=== PATIENT | female | born 1950 | race Caucasian/White ===

== ENCOUNTER 2019-04-23 14:16 | Emergency (ER) | payer MEDICARE, OTHER ==
[~2019-04-23] VITALS: Ht 167.6 cm; Wt 105.7 kg
[2019-04-23] MEDS ORDERED: IV NORMAL SALINE 1,000ML 1,000 ML IV SCH (14:42)
[2019-04-23] MEDS ORDERED: IPRATRPIUM/ALBUTEROL 0.5/2.5MG 3 ML NEBU. NEB ONE (14:45)
[2019-04-23 14:57] LABS: BASO % 1 % (0-3); EOS % 0 % (0-3); HEMOGLOBIN 14.1 g/dL (12.0-15.5); LYMPH # 0.9 x10^3/uL (1.0-4.8); LYMPH % 13 % (24-48); MEAN CORPUSCULAR HEMOGLOBIN 28 pg (25-35); MEAN CORPUSCULAR HGB CONC 31 g/dL (31-37); MEAN CORPUSCULAR VOLUME 89 fL (79-100); MONO # 0.6 x10^3/uL (0.0-1.1); MONO % 9 % (0-9); NEUT # 5.3 x10^3uL (1.8-7.7); NEUT % 77 % (31-73); PLATELET COUNT 172 x10^3/uL (140-400); RED BLOOD COUNT 5.04 x10^6/uL (3.50-5.40); RED CELL DISTRIBUTION WIDTH 15.5 % (11.5-14.5); WHITE BLOOD COUNT 6.9 x10^3/uL (4.0-11.0)
--- NOTE | 2019-04-23 15:02 | PHYS DOC ---
Past History Past Medical History: CAD, COPD, Diabetes, Hypertension Additional Past Medical Histor: chronic pain,, obesity Smoking: Cigarettes Adult General Chief Complaint Chief Complaint: SHORTNESS OF BREATH HPI HPI Patient is a 69-year-old female, smoker, who presents to the emergency department from her group home, for "worsening" over the past few days. She reports a cough, productive of sputum, although she is uncertain of the color. She apparently had an x-ray done yesterday, and another x-ray of her chest done today which according to the report, shows "worsening aeration"bibasilar infiltrates compared to yesterday's chest x-ray, although her report from that x-ray is not available. However the patient is not currently on antibiotics. She was on Levaquin in January for pneumonia. The patient reports pain all over, and has a history of chronic pain and takes but is not having morphine, but is not having any focal pain. She denies any chest pain, fevers, or chills. There are no alleviating or exacerbating factors to her symptoms. She wears oxygen at night. Review of Systems Review of Systems Constitutional: Denies fever or chills [] Eyes: Denies change in visual acuity, redness, or eye pain [] HENT: Denies nasal congestion or sore throat [] Respiratory: No additional information not addressed in HPI [] Cardiovascular: No additional information not addressed in HPI [] GI: Denies abdominal pain, nausea, vomiting, bloody stools or diarrhea [] : Denies dysuria or hematuria [] Musculoskeletal: Denies focal pain [] Integument: Denies rash or skin lesions [] Neurologic: Denies headache, focal weakness or sensory changes [] Endocrine: Denies polyuria or polydipsia [] All other systems were reviewed and found to be within normal limits, except as documented in this note. Current Medications Current Medications Current Medications Medications (Trade) Dose Ordered Sig/[facility] Start Time Stop Time Status Last Admin Dose Admin Albuterol/ Ipratropium (Duoneb) 3 ml 1X ONCE 04/23/19 14:45 04/23/19 14:46 UNV Sodium Chloride 1,000 ml @ 100 mls/hr Q10H 04/23/19 14:42 04/24/19 00:41 UNV Physical Exam Physical Exam PHYSICAL EXAM: CONSTITUTIONAL: Well developed, well nourished HEAD: normocephalic, atraumatic EENT: PERRL, EOMI. Conjunctivae normal color, sclerae non-icteric; moist mucous membranes. NECK: Supple, non-tender; no meningismus. LUNGS: Globally diminished breath sounds, with scattered rhonchi. HEART: Regular rate and rhythm, no murmur CHEST: No deformity; non-tender ABDOMEN: The abdomen is soft, and non-tender, no masses or bruits. EXTREM: Normal ROM; no deformity, no calf tenderness. Normal pulses palpable in all extremities. There is trace bilateral pedal edema. SKIN: No rash; no diaphoresis NEURO: Alert; normal speech and cognition; CN's grossly intact; strength grossly intact without focal deficit. BACK: No CVA TTP. Current Patient Data Lab Results Laboratory Tests Test 04/23/19 14:34 04/23/19 14:54 04/23/19 15:00 White Blood Count 6.9 x10^3/uL Red Blood Count 5.04 x10^6/uL Hemoglobin 14.1 g/dL Hematocrit 45.0 % Mean Corpuscular Volume 89 fL Mean Corpuscular Hemoglobin 28 pg Mean Corpuscular Hemoglobin Concent 31 g/dL Red Cell Distribution Width 15.5 % Platelet Count 172 x10^3/uL Neutrophils (%) (Auto) 77 % Lymphocytes (%) (Auto) 13 % Monocytes (%) (Auto) 9 % Eosinophils (%) (Auto) 0 % Basophils (%) (Auto) 1 % Neutrophils # (Auto) 5.3 x10^3uL Lymphocytes # (Auto) 0.9 x10^3/uL Monocytes # (Auto) 0.6 x10^3/uL Eosinophils # (Auto) 0.0 x10^3/uL Basophils # (Auto) 0.0 x10^3/uL Prothrombin Time 9.9 SEC Prothromb Time International Ratio 1.0 Sodium Level 146 mmol/L Potassium Level 3.9 mmol/L Chloride Level 103 mmol/L Carbon Dioxide Level 37 mmol/L Anion Gap 6 Blood Urea Nitrogen 19 mg/dL Creatinine 0.9 mg/dL Estimated GFR (Cockcroft-Gault) 62.1 BUN/Creatinine Ratio 21 Glucose Level 97 mg/dL Lactic Acid Level 1.7 mmol/L Calcium Level 8.4 mg/dL Total Bilirubin 0.3 mg/dL Aspartate Amino Transf (AST/SGOT) 18 U/L Alanine Aminotransferase (ALT/SGPT) 18 U/L Alkaline Phosphatase 48 U/L Troponin I Quantitative 0.020 ng/mL LH-Ayf-T-Type Natriuretic Peptide 3525 pg/mL Total Protein 5.7 g/dL Albumin 2.8 g/dL Albumin/Globulin Ratio 1.0 Urine Collection Type Unknown Urine Color Yellow Urine Clarity Clear Urine pH 6.0 Urine Specific Steen 1.020 Urine Protein Neg Urine Glucose (UA) Neg mg/dL Urine Ketones (Stick) Neg mg/dL Urine Blood Neg Urine Nitrite Neg Urine Bilirubin Neg Urine Urobilinogen Dipstick 0.2 mg/dL Urine Leukocyte Esterase Neg Urine RBC 0 /HPF Urine WBC Occ /HPF Urine Squamous Epithelial Cells Occ /LPF Urine Bacteria 0 /HPF Urine Opiates Screen Pos Urine Methadone Screen Neg Urine Barbiturates Neg Urine Phencyclidine Screen Neg Urine Amphetamine/Methamphetamine Neg Urine Benzodiazepines Screen Neg Urine Cocaine Screen Neg Urine Cannabinoids Screen Neg Urine Ethyl Alcohol Neg Influenza Type A (Rapid) Negative Influenza Type B (Rapid) Negative Blood Gas pH 7.40 Blood Gas PCO2 60 mmHg Blood Gas PO2 59 mmHg Blood Gas HCO3 37 mmol/L Arterial Bld O2 Saturation (Calc) 89 % FiO2 32 % Current Medications Medications (Trade) Dose Ordered Sig/Grace Route PRN Reason Start Time Stop Time Status Last Admin Dose Admin Albuterol/ Ipratropium (Duoneb) 3 ml 1X ONCE NEB 04/23/19 14:45 04/23/19 14:50 DC 04/23/19 15:09 Sodium Chloride 1,000 ml @ 100 mls/hr Q10H IV 04/23/19 14:42 04/24/19 00:41 04/23/19 14:59 EKG EKG []Normal sinus rhythm at a rate of 89 beats for minute, left axis deviation, right bundle-branch block there are no acute ischemic ST/T changes. Radiology/Procedures Radiology/Procedures PROCEDURE: PORTABLE CHEST 1V EXAM: Chest, single view. HISTORY: Cough. Shortness of breath. COMPARISON: None. FINDINGS: A frontal view of the chest obtained. There is mild diffuse increased interstitial opacity. There is no consolidation, pleural effusion or pneumothorax. The heart is normal in size for portable technique. There are dorsal column stimulator leads overlying the thoracic spine. IMPRESSION: Mild diffuse interstitial prominence without andi congestion or consolidated infiltrate. [] Course & Med Decision Making Course & Med Decision Making Pertinent Labs and Imaging studies reviewed. (See chart for details) [] 4:15 PM: Patient is stable at this time. Her oxygenation remains normal. Her blood pressure is noted low, but she is laying on her side, her position of comfort, with a blood pressure cuff on the elevated arm, her blood pressure has been stable throughout her stay. She feels at her baseline at this time. There is no acute pathology noted, her ABG shows a compensated chronic respiratory acidosis. The patient is stable for discharge back to her nursing facility. Although there is no definite pneumonia on the x-ray today, given her smoking history, I will prescribe her an antibiotic to prevent the possibility for superinfection. Return precautions were discussed in detail. Dragon Disclaimer Dragon Disclaimer This electronic medical record was generated, in whole or in part, using a voice recognition dictation system. Departure Departure: Impression: Primary Impression: COPD exacerbation Disposition: HOME, SELF-CARE Condition: STABLE Patient Instructions: Bronchitis, Chronic Obstructive Pulmonary Disease Scripts Azithromycin (ZITHROMAX) 250 Mg Tablet 1 PKG PO UD for -, #6 TAB Prov: LIZ PINEDO MD 04/23/19 LIZ PINEDO MD Apr 23, 2019 15:02
[2019-04-23 15:18] LABS: ALBUMIN 2.8 g/dL (3.4-5.0); CALCIUM 8.4 mg/dL (8.5-10.1); CREATININE 0.9 mg/dL (0.6-1.0); GFR 62.1; POTASSIUM 3.9 mmol/L (3.5-5.1); TOTAL BILIRUBIN 0.3 mg/dL (0.2-1.0); TOTAL PROTEIN 5.7 g/dL (6.4-8.2)
[2019-04-23 15:19] LABS: BARBITURATES NEG (NEG); BENZODIAZEPINES NEG (NEG); CANNABINOIDS NEG (NEG); COCAINE NEG (NEG); METHADONE NEG (NEG); OPIATES POS (NEG); PHENCYCLIDINE NEG (NEG)
[2019-04-23 15:22] LABS: BGAS PH 7.4 (7.35-7.45)
[2019-04-23 15:23] LABS: AMPHETAMINE/METHAMPHETAMINE NEG (NEG)
[2019-04-23 15:24] LABS: BACTERIA,URINE 0 /HPF (0-FEW); BILIRUBIN,URINE NEG (NEG); CLARITY,URINE CLEAR; COLOR,URINE YELLOW; GLUCOSE,URINE NEG (NEG); NITRITE,URINE NEG (NEG); RBC,URINE 0 /HPF (0-2); SQUAMOUS EPITHELIAL CELL,UR OCC /LPF; UROBILINOGEN,URINE 0.2 mg/dL (0.2 mg/dL); WBC,URINE OCC /HPF (0-4)
--- NOTE | 2019-04-23 15:37 | RAD ---
EXAM: Chest, single view. HISTORY: Cough. Shortness of breath. COMPARISON: None. FINDINGS: A frontal view of the chest obtained. There is mild diffuse increased interstitial opacity. There is no consolidation, pleural effusion or pneumothorax. The heart is normal in size for portable technique. There are dorsal column stimulator leads overlying the thoracic spine. IMPRESSION: Mild diffuse interstitial prominence without andi congestion or consolidated infiltrate. Electronically signed by: Ana Strickland MD (04/23/2019 3:34 PM) [place] [id number]
[2019-04-23 15:55] LABS: INFLUENZA A PATIENT NEGATIVE (NEGATIVE); INFLUENZA B PATIENT NEGATIVE (NEGATIVE)
[2019-04-23] MEDS ORDERED: AZIT250T PO (16:20)
[2019-04-23] MEDS ORDERED: MORPHINE SULFATE 4 MG/ML DISP.SYRIN. IV ONE (17:00)
[2019-04-23 17:16] VITALS: BP 111/37
--- NOTE | 2019-04-26 08:11 | EKG ---
[address] [address] Test Date: 2019-04-23 Test Time: 15:32:58 Pat Name: YONIS GREENFIELD Department: Room: Gender: F [employer] Director: : 1950 Requested By: LIZ PINEDO Order Number: [id number] Reading MD: Measurements Intervals [place] Rate: 89 P: -62 GA: 136 QRS: -49 QRSD: 128 T: 14 QT: 380 QTc: 463 Interpretive Statements SINUS RHYTHM ABNORMAL LEFT AXIS DEVIATION NON SPECIFIC INTRAVENTRICULAR BLOCK RVH WITH REPOLARIZATION ABNORMALITY ABNORMAL ECG RI6.01 No previous ECG available for comparison
== END 2019-04-23 20:00 | disposition home or self-care (01) ==
LOC: ER 14:16
DX: J44.1 Chronic obstructive pulmonary disease with (acute) exacerbation (principal); I25.10 Atherosclerotic heart disease of native coronary artery without angina pectoris; I10 Essential (primary) hypertension; F17.210 Nicotine dependence, cigarettes, uncomplicated; G89.29 Other chronic pain; E66.9 Obesity, unspecified; Z68.37 Body mass index [BMI] 37.0-37.9, adult
CPT/HCPCS: 36415; 71045; 80053; 80307; 81001; 82803; 83605; 83880; 84484; 85025; 85610; 87040; 87804; 93005; 94640; 96374; 99285; J2270; J7620; J7030

== ENCOUNTER 2019-11-14 17:41 | Observation (INO) | payer OTHER ==
[~2019-11-14] VITALS: Ht 167.6 cm; Wt 116.5 kg
[~2019-11-14 17:41] MED LIST: AZIT250T PO
--- NOTE | 2019-11-14 17:56 | PHYS DOC ---
Past History Past Medical History: CAD, COPD, Diabetes, Hypertension Additional Past Medical Histor: chronic pain,, obesity (KEELY ROGERS DO) Smoking: Cigarettes Alcohol Use: None Drug Use: None (KEELY ORGERS DO) General Adult EDM: Chief Complaint: WEAKNESS/GENERALIZED HPI: HPI: Patient is a 69-year-old female presenting to the ED with a chief complaint of lethargy and shortness of breath. Patient was brought by EMS from a shelter. Patient is on 1.5 L of oxygen all the time due to COPD. EMS state that when they got to the shelter patient was on 5 L and her oxygen saturation was 79%. They placed her nonrebreather and patient was 100% oxygenation. Patient is currently being treated for cellulitis in her lower extremities with Bactrim. Patient also states that she used her breathing treatment this morning which did not help her. Patient denies fever, chills, nausea, vomiting, diarrhea, chest pain. (KEELY ROGERS DO) Review of Systems: Review of Systems: Constitutional: Denies fever or chills Eyes: Denies change in visual acuity HENT: Denies nasal congestion or sore throat Respiratory: Complains of wheezing and shortness of breath Cardiovascular: Denies chest pain or edema GI: Denies abdominal pain, nausea, vomiting, bloody stools or diarrhea : Denies dysuria Musculoskeletal: Complains of cellulitis in her lower extremities. Neurologic: Denies headache, focal weakness or sensory changes (KEELY ROGERS DO) Heart Score: Risk Factors: Risk Factors: DM, Current or recent (<one month) smoker, HTN, HLP, family history of CAD, obesity. Risk Scores: Score 0 - 3: 2.5% MACE over next 6 weeks - Discharge Home Score 4 - 6: 20.3% MACE over next 6 weeks - Admit for Clinical Observation Score 7 - 10: 72.7% MACE over next 6 weeks - Early Invasive Strategies (KEELY ROGERS DO) Allergies: Allergies: Allergies Coded Allergies Type Severity Reaction Last Updated Verified Nghhbew-Evg-Fnd Reductase Inhibitor Allergy Unknown 04/23/19 Yes alendronate sodium Allergy Unknown 04/23/19 Yes gabapentin Allergy Unknown 04/23/19 Yes ibuprofen Allergy Unknown 04/23/19 Yes propoxyphene Allergy Unknown 04/23/19 Yes (KEELY ROGERS DO) Physical Exam: PE: Constitutional: Well developed, well nourished, no acute distress, non-toxic appearance. [] HENT: Normocephalic, atraumatic Eyes: EOMI Neck: Normal range of motion, Supple Cardiovascular:Heart rate regular rhythm Lungs & Thorax: Bilateral wheezing Abdomen: Bowel sounds normal, soft, no tenderness Extremities: Both lower extremities are wrapped as she has been treated for cellulitis. There is mild erythema in this area. Neurologic: Alert (KEELY ROGERS DO) PE: Constitutional: Well developed, obese, no acute distress, somnolent HENT: Normocephalic, atraumatic Eyes: Conjunctiva normal, no discharge Cardiovascular: Heart rate normal, regular rhythm Lungs & Thorax: No respiratory distress, equal chest rise and fall Abdomen: Obese, soft Skin: Warm, dry, no erythema, no rash Extremities: Kerlex bandages to bilateral lower legs at sites of reported known cellulitis, ROM intact, 2+ edema Neurologic: Alert but somnolent, will fall asleep after talking for brief period of time, no focal deficits noted Psychologic: Affect normal, judgment normal (AZUCENA MIMS DO) EKG: EKG: EKG interpretation: 17: 56 on 11/14/2019 HR: 72 Sinus rhythm Regular intervals Normal axis Nonspecific ST changes [] (KEELY ROGERS DO) Radiology/Procedures: Radiology/Procedures: [] (KEELY ROGERS DO) Radiology/Procedures: PROCEDURE: CHEST AP ONLY Exam: Chest one view INDICATION: Shortness of breath TECHNIQUE: Frontal view of the chest Comparisons: 04/23/2019 FINDINGS: The cardiomediastinal silhouette and pulmonary vessels are within normal limits. Hazy opacity at the left lung base. Remaining lungs are clear. IMPRESSION: Opacity at the left lung base may relate to atelectasis, effusion and/or pneumonia Electronically signed by: Mechelle English MD (11/14/2019 6:33 PM) [id number] (AZUCENA MIMS DO) Course & Med Decision Making: Course & Med Decision Making Ordered labs, chest x-ray, EKG, troponin, BNP, ABG Currently patient is on 5 L nasal cannula and her oxygen saturation is 92%. Patient seems to be dozing off and reviewing her medications I see that she has taken opiates. Ordered Narcan 0.4 mg IV. Patient care turned over to Dr Mims at shift change. (KEELY ROGRES DO) Course & Med Decision Making 1800- Sign out received from Dr. Rogers for patient with generalized weakness, shortness of breath, and report of hypoxia down to 79% on her normal O2 requirement. Patient with increased in Sat with increased supplemental O2. EKG and labs reviewed. WBC slightly elevated. Lactic acid WNL. BNP elevated >2000. Initial troponin WNL. CXR with concern for opacity in LLL concerning for pneumonia. Empiric antibiotics initiated with Zosyn and Azithromycin. COVID testing had also been performed. Patient seen and evaluated by myself. Patient requiring admission for further evaluation and treatment. Discussed with Dr. Molina (hospitalist) who is in agreement with admission. Discussed findings and plan with patient, who acknowledges understanding and agreement. COVID-19 CRITERIA: The patient was evaluated during the global COVID-19 pandemic, and that diagnosis was suspected/considered upon their initial presentation. Their evaluation, treatment and testing was consistent with current guidelines for patients who present with complaints or symptoms that may be related to COVID-19. (AZUCENA MIMS DO) Dragon Disclaimer: Dragon Disclaimer: This electronic medical record was generated, in whole or in part, using a voice recognition dictation system. (KEELY ROGERS DO) Departure Departure: Impression: Primary Impression: Generalized weakness Additional Impressions: Pneumonia Qualified Codes: J18.9 - Pneumonia, unspecified organism Hypoxia Suspected 2019 novel coronavirus infection Disposition: ADMITTED INPATIENT Admitting Physician: Owen Molina (AZUCENA MIMS DO) Condition: GUARDED Referrals: GENESIS FLORES (PCP) Justification of Admission: Justification of Admission: Justification of Admission Dx: Yes Comments: Generalized weakness, Hypoxia, Pneumonia, (AZUCENA MIMS DO) COVID-19 Assessment COVID-19 Patient Risks: Age 65 or older: Yes Sign of co-morbidity: Yes Exp to person + for COVID: No Exp to PUI: No Travel from affected area: No Lower respiratory symptoms: Yes Fever: No (AZUCENA MIMS DO) PPE Use: Full PPE with N95 mask or PAPR: Yes (AZUCENA MIMS DO) Critical Care Time Critical care time was 30 minutes which includes time at bedside, spent in discussion of patient's care with specialists and/or family members, with interpretation of laboratory and/or radiological studies and is exclusive of procedures. (AZUCENA MIMS DO) Critical Care Time Critical care time was [] minutes exclusive of procedures. (KEELY ROGERS DO) KEELY ROGERS DO Nov 14, 2019 17:56 AZUCENA MIMS DO Nov 14, 2019 18:46
[2019-11-14 18:10] LABS: BGAS PH 7.33 (7.35-7.45)
[2019-11-14] MEDS ORDERED: NALOXONE 0.4 MG/ML VIAL. IV ONE (18:15)
[2019-11-14 18:19] LABS: BASO # 0.1 x10^3/uL (0.0-0.2); BASO % 1 % (0-3); EOS % 0 % (0-3); HEMATOCRIT 38.7 % (36.0-47.0); HEMOGLOBIN 11.8 g/dL (12.0-15.5); LYMPH % 9 % (24-48); MEAN CORPUSCULAR HEMOGLOBIN 25 pg (25-35); MEAN CORPUSCULAR HGB CONC 30 g/dL (31-37); MEAN CORPUSCULAR VOLUME 84 fL (79-100); MONO % 9 % (0-9); NEUT # 9.3 x10^3uL (1.8-7.7); NEUT % 81 % (31-73); PLATELET COUNT 246 x10^3/uL (140-400); RED BLOOD COUNT 4.64 x10^6/uL (3.50-5.40); RED CELL DISTRIBUTION WIDTH 17.2 % (11.5-14.5); WHITE BLOOD COUNT 11.4 x10^3/uL (4.0-11.0)
[2019-11-14 18:25] LABS: CALCIUM 8.4 mg/dL (8.5-10.1); CREATININE 1.9 mg/dL (0.6-1.0); GFR 26.2; POTASSIUM 5.2 mmol/L (3.5-5.1)
--- NOTE | 2019-11-14 18:29 | EKG ---
[address] [address] Test Date: 2019-11-14 Test Time: 17:55:50 Pat Name: YONIS GREENFIELD Department: Room: Gender: F [employer] Helper: : 1950 Requested By: KEELY ROGERS Order Number: [id number] Reading MD: Measurements Intervals [place] Rate: 72 P: 56 VT: 150 QRS: -61 QRSD: 136 T: 55 QT: 444 QTc: 488 Interpretive Statements SINUS RHYTHM ABNORMAL LEFT AXIS DEVIATION LEFT ANTERIOR FASCICULAR BLOCK RIGHT BUNDLE BRANCH BLOCK BIFASCICULAR BLOCK ABNORMAL ECG RI6.02 No previous ECG available for comparison
--- NOTE | 2019-11-14 18:36 | RAD ---
Exam: Chest one view INDICATION: Shortness of breath TECHNIQUE: Frontal view of the chest Comparisons: 04/23/2019 FINDINGS: The cardiomediastinal silhouette and pulmonary vessels are within normal limits. Hazy opacity at the left lung base. Remaining lungs are clear. IMPRESSION: Opacity at the left lung base may relate to atelectasis, effusion and/or pneumonia Electronically signed by: Mechelle English MD (11/14/2019 6:33 PM) [id number]
[2019-11-14 18:38] LABS: ALBUMIN 2.7 g/dL (3.4-5.0); ALBUMIN/GLOBULIN RATIO 0.9 (1.0-1.7); TOTAL BILIRUBIN 0.3 mg/dL (0.2-1.0); TOTAL PROTEIN 5.6 g/dL (6.4-8.2)
[2019-11-14 18:46] LABS: % BANDS 1 % (0-9); % BASOS 1 % (0-3); % LYMPHS 7 % (24-48); % MONOS 5 % (0-10); % SEGS 86 % (35-66)
[2019-11-14 18:47] LABS: ANISOCYTOSIS SLIGHT; NUCLEATED RBC 2; PLT ESTIMATE ADEQUATE (ADEQUATE); POLYCHROMASIA SLIGHT
[2019-11-14] MEDS ORDERED: PIPERACILLIN/TAZOBACTAM 4.5 GM in IV NORMAL SALINE 50ML 50 ML IV ONE (19:15)
[2019-11-14] MEDS ORDERED: DEXTROSE 50% 25 GM / 50ML DISP.SYRIN. IV PRN (19:15)
[2019-11-14] MEDS ORDERED: IPRATRPIUM/ALBUTEROL 0.5/2.5MG 3 ML NEBU. NEB PRN (19:15)
[2019-11-14] MEDS ORDERED: ONDANSETRON PF 4 MG/2 ML VIAL. IVP PRN (19:15)
[2019-11-14] MEDS ORDERED: AZITHROMYCIN 500 MG in IV NORMAL SALINE 250ML 250 ML IV ONE ×2 (19:45→22:00)
[2019-11-14] MEDS ORDERED: ASPIRIN 325 MG TABLET PO ONE (19:45)
[2019-11-14] MEDS ORDERED: PIPERACILLIN/TAZOBACTAM 4.5 GM VIAL IV ONE (20:09)
[2019-11-14] MEDS ORDERED: IV NORMAL SALINE 50ML 50 ML ONE (20:09)
[2019-11-14 22:00] VITALS: BP 136/76
--- NOTE | 2019-11-15 00:17 | NUR ---
Pt admitted to 124 via [facility] accompanied by EMS and nursing staff. Pt transferred from [facility] to bed X4 assist. Here for complaints of hypoxia, weakness, and lethargy. Pt. has pending covid test placed in contact and airborne isolation per protocol. admission assessment completed pt. noted to have BLE cellulitis, wraps removed, picture taken, and new wraps applied. PMH and home meds reviewed via group home records. Pt. is a resident of [facility] . Pt. normally wears 1-1.5 liters of O2 now requiring 4liters to sat above 90%. Pt placed on telemetry and is currently sinus rhythm. Orientated pt to unit and routines. Discussed POC, v/u. Bed in lowest position with call light in reach.
[2019-11-15] MEDS ORDERED: LOSA50TA86 PO (01:15)
[2019-11-15] MEDS ORDERED: SULF1TAB24 PO (01:15)
[2019-11-15] MEDS ORDERED: INSU100I32 SQ (01:15)
[2019-11-15] MEDS ORDERED: ASPI-630 PO (01:15)
[2019-11-15] MEDS ORDERED: MORP-16 PO (01:15)
[2019-11-15] MEDS ORDERED: FURO-68 PO (01:15)
[2019-11-15] MEDS ORDERED: FENO160T PO (01:15)
[2019-11-15] MEDS ORDERED: MONT10TA80 PO (01:15)
[2019-11-15] MEDS ORDERED: OXYC-314 PO (01:15)
[2019-11-15] MEDS ORDERED: MAGN400T5 PO (01:15)
[2019-11-15] MEDS ORDERED: INSU100I17 SQ ×2 (01:15)
[2019-11-15] MEDS ORDERED: FURO-69 PO (01:15)
[2019-11-15] MEDS ORDERED: LEVO88TA2 PO (01:15)
[2019-11-15] MEDS ORDERED: CALC-56 PO (01:15)
[2019-11-15] MEDS ORDERED: LACT1CAP6 PO (01:15)
[2019-11-15] MEDS ORDERED: SENN8.6T11 PO (01:15)
[2019-11-15] MEDS ORDERED: OMEP40CA45 PO (01:15)
[2019-11-15] MEDS ORDERED: ACET325T9 PO (01:22)
[2019-11-15] MEDS ORDERED: TRIA15CR50 TP (01:22)
[2019-11-15] MEDS ORDERED: EZET10TA20 PO (01:22)
[2019-11-15] MEDS ORDERED: DICL100G18 TD (01:22)
[2019-11-15] MEDS ORDERED: Vitamin D3 PO (01:22)
[2019-11-15] MEDS ORDERED: ALBU2.5V8 IH (01:24)
[2019-11-15] MEDS ORDERED: SPIR50TA PO (01:24)
[2019-11-15] MEDS ORDERED: LOSA25TA PO (01:59)
[2019-11-15] MEDS ORDERED: AMIN30LI2 PO (01:59)
[2019-11-15] MEDS ORDERED: OXYC-630 PO (01:59)
[2019-11-15] MEDS ORDERED: GLYC113C2 TP (01:59)
[2019-11-15] MEDS ORDERED: Hydrocortisone PO (01:59)
[2019-11-15] MEDS ORDERED: HYDROCORTISONE PO (02:03)
--- NOTE | 2019-11-15 04:21 | NUR ---
Pt placed call light on to request pain meds. Once donned in PPE, staff approached pt who has fallen back to sleep. Pt awoke with light shaking, pt reports severe pain "all over." Explained to pt that due to her respiratory status, unable to give narcotics. Offered other comfort measures to which pt declined. Pt also refusing to get up to BSC to void. Pt is a x1-2 assist to BSC at the [facility] but states, "I'm in the hospital, can't you just put a catheter in so I don't have to get up?" Explained to pt that arteaga cannot be placed if not warranted and requires physician order. Pt irritated, but did utilize bedpan after much coaxing. Pt able to move self in bed but is repeatedly asking staff to help turn, adjust HOB, and rotate pillows. Pt also able to underlay stitcher cups and reach items on bedside table independently, but is demanding assistance. Pt has minimal response to redirection.
[2019-11-15 04:54] LABS: BACTERIA,URINE 0 /HPF (0-FEW); BILIRUBIN,URINE NEG (NEG); CLARITY,URINE CLEAR; COLOR,URINE YELLOW; GLUCOSE,URINE NEG (NEG); NITRITE,URINE NEG (NEG); RBC,URINE 0 /HPF (0-2); SQUAMOUS EPITHELIAL CELL,UR MOD /LPF; UROBILINOGEN,URINE 0.2 mg/dL (0.2 mg/dL)
[2019-11-15 05:00] VITALS: BP 119/87
[2019-11-15] MEDS ORDERED: INSULIN LISPRO 300 UNITS/3 ML VIAL. SQ SCH (08:00)
--- NOTE | 2019-11-15 09:14 | NUR ---
NSG NOTE; PT ROUNDS AT 0800 FOR FSBS AND TO BRING BREAKFAST PT UNHAPPY AND UNCOMFORTABLE. WITH PT'S LARGE ABD AND CHRONIC BACK PAIN, POSITIONING FOR COMFORT WAS DIFFICULT. PT USED BEDPAN FOR URINATION. SHE REFUSED BREAKFAST STATING SHE DOESN'T LIKE ANY OF THE FOOD OFFERED AND DID NOT WANT TO ORDER ANYTHING ELSE FROM THE KITCHEN. SHE WANTS TO GO HOME TO THE [facility] WHERE "THEY KNOW HOW TO TAKE CARE OF HER RIGHT". SHE HAD CALLED THEIR 2 YEAR [employer] ASKING TO GO HOME. DR SALAZAR NOTIFIED
--- NOTE | 2019-11-15 09:26 | HP ---
ADMIT DATE: ATTENDING PHYSICIAN: Dr. Salazar. CHIEF COMPLAINT: Shortness of breath and weakness. HISTORY OF PRESENT ILLNESS: The patient is a 69-year-old female, residential resident, admitted through the ED with increasing shortness of breath, hypoxemia and early evidence of infiltrate in the left lower lobe. She is morbidly obese. She has cor pulmonale, COPD and is on chronic oxygen. Normally, she is on 2 liters. Her saturation desaturated to 79%. She required more supplemental oxygen. Currently, she is being treated for cellulitis in her legs. She used a breathing treatment. She is still dyspneic. She was admitted for further treatment and evaluation. PAST MEDICAL HISTORY: Significant for morbid obesity, coronary artery disease, COPD, diabetes, hypertension, obesity, chronic pain, cellulitis and generalized debilitation. She is nonambulatory due to her weight and deconditioning. She gets around in a wheelchair. ALLERGIES: Include the following: STATIN DRUGS, ALENDRONATE, NEURONTIN, IBUPROFEN and PROPOXYPHENE, exact reaction is unclear. CURRENT MEDICATIONS: Her current medicines are reviewed at the residential. She was taking Tylenol, albuterol, Pro-Stat liquid, aspirin, calcium, Voltaren, Zetia, fenofibrate, Lasix, glycerin insulin, lactobacillus, Synthroid, losartan, magnesium, morphine sulfate, omeprazole, oxycodone, senna, Aldactone, Bactrim, triamcinolone, hydrocortisone tablets and vitamin D3. SOCIAL HISTORY: She is a nonsmoker, nondrinker. FAMILY HISTORY: Unobtainable. REVIEW OF SYSTEMS: Significant for multiple issues including chronic pain, debilitation. She states that she does not want to be here. She wishes to go back to her residential and I felt this is reasonable. All other systems reviewed and turned to be negative. PHYSICAL EXAMINATION: GENERAL: When I saw her, this is an obese, chronically ill-appearing female. VITAL SIGNS: Initial blood pressure was 136/76, pulse was 69 and regular, temperature 97.7, oxygen saturation adequate at 3 liters nasal cannula. HEENT: Head is without trauma. Pupils are reactive. Sclerae nonicteric. Oropharynx is clear. NECK: Supple, no bruits identified. LUNGS: Shallow respirations. I could not assess her Anderson due to her girth in size. CARDIOVASCULAR: Showed distant heart tones. No obvious gallops. ABDOMEN: Soft, nontender to palpation. Bowel sounds are hypoactive. EXTREMITIES: Showed 2+ edema. There are open wounds on both legs that are wrapped. There is no new cellulitis or erythema. NEUROLOGIC: Speech is fluent. No focal deficit. She is bedridden and nonambulatory. LABORATORY AND X-RAY STUDIES: Chest x-ray showed cardiomegaly, infiltrate in the left lower lobe, whether this is pneumonia or atelectasis is to be determined. Her hemoglobin is 11.8 g/dL with a white count of 11,400. Electrolytes within normal range. Creatinine is 1.9 mg/dL, nonfasting blood sugar of 130. Two sets of cardiac enzymes negative for coronary ischemia. ASSESSMENT: 1. A 69-year-old female with increasing hypoxemia. 2. Acute on chronic respiratory failure due to chronic obstructive pulmonary disease and obesity. 3. Pneumonia, left lower lobe. 4. Morbid obesity. 5. Chronic pain syndrome. 6. Type 2 diabetes. 7. Degenerative arthritis. 8. Generalized debilitation. PLAN: 1. Admit to the inpatient unit. 2. IV antibiotics. 3. Continue home meds. 4. Diabetic diet as tolerated. 5. Follow up x-rays when appropriate. FUENTES SALAZAR MD DR: MATTHEW/christian JOB#: [id number] / [id number]
--- NOTE | 2019-11-15 11:49 | NUR ---
YAQUELIN NOTE; DISCHARGE WRITTEN DISCHARGE INSTRUCTIONS INCLUDING MED REC SENT WITH PT ALL PERSONAL ITEMS SENT WITH PT DISCHARGED FOR RETURN TO [facility] AT 1140 VIA W/C W/ O2 AT 2L NC ACCOMP BY TRANSPORT PERSONNEL Addendum: 11/15/19 at 1208 by SETH PALACIOS RN REPORT CALLED TO [facility]EL
--- NOTE | 2019-11-15 12:22 | DS ---
DATE OF DISCHARGE: 11/15/2019 ATTENDING PHYSICIAN: Dr. Salazar. FINAL DISCHARGE DIAGNOSES: 1. Hypoxemia. 2. Generalized debilitation. 3. Mild pneumonia, left lower lobe. 4. Atelectasis. 5. Morbid obesity. 6. Hypertension. 7. Type 2 diabetes. 8. Degenerative arthritis. 9. Cellulitis of legs. 10. Generalized debilitation. The patient is nonambulatory. 11. Chronic pain syndrome. HISTORY AND PHYSICAL: This is a 69-year-old female admitted with hypoxemia. Chest x-ray showed questionable pneumonia versus atelectasis in the left base. She was treated for pneumonia and admitted for inpatient for care. PHYSICAL EXAMINATION: Please see the dictated note. PERTINENT LABORATORY AND X-RAY STUDIES: Her creatinine is 1.9 mg/dL, which is probably baseline for her. Electrolytes within normal range. Cardiac enzymes were negative for coronary ischemia. Hemoglobin 11.8 g, white count 11,400. Chest x-ray demonstrated hazy opacity in left lung base, either atelectasis and/or pneumonia. COURSE IN THE HOSPITAL: The patient was admitted and started on intravenous antibiotics, nebulizer, home meds and Accu-Cheks. She did fairly well. We were able to wean down her oxygen requirement down to 2 liters, which is her baseline. When I saw her the next morning, she was doing better. She adamantly wanted to go home to her [facility] bed at the [facility]. I felt this is reasonable. I felt that she would benefit from oral antibiotics for 7 more days and therefore, I recommended cephalexin 500 mg p.o. t.i.d. and Zithromax 250 p.o. daily for 7 more days. Her home meds are unchanged. They include the following: She will continue her Tylenol, albuterol, aspirin, calcium, Voltaren gel , Zetia, fenofibrate, Lasix, hydrocodone, insulin, Lantus and NovoLog, Lactobacillus, Synthroid, losartan, magnesium, montelukast, morphine sulfate, omeprazole, oxycodone, Aldactone, senna, Bactrim, triamcinolone, vitamin D3 dose is unchanged. She remains a full code. Her prognosis is guarded. She was discharged then from our hospital in stable condition with explicit instructions and followup care. FUENTES SALAZAR MD DR: MATTHEW/christian JOB#: [id number] / [id number]
--- NOTE | 2019-11-18 13:14 | NUR ---
IP: spoke to social insurance administrator at [facility] regarding COVID result. Faxed to [phone].
== END 2019-11-15 11:40 | disposition home or self-care (01) ==
LOC: ER 17:41 → INTOOBSV 19:12 → 1 SOUTH 19:12
PROVIDERS: ADMIT Hospitalist; ATTEND Hospitalist
DX: Z03.818 Encounter for observation for suspected exposure to other biological agents ruled out (principal); J96.21 Acute and chronic respiratory failure with hypoxia; J44.0 Chronic obstructive pulmonary disease with (acute) lower respiratory infection; E66.01 Morbid (severe) obesity due to excess calories; G89.4 Chronic pain syndrome; E11.9 Type 2 diabetes mellitus without complications; M19.90 Unspecified osteoarthritis, unspecified site; J18.9 Pneumonia, unspecified organism; I25.10 Atherosclerotic heart disease of native coronary artery without angina pectoris; I10 Essential (primary) hypertension; J98.11 Atelectasis; L03.115 Cellulitis of right lower limb; L03.116 Cellulitis of left lower limb; Z87.891 Personal history of nicotine dependence
CPT/HCPCS: 36415; 36600; 71045; 80053; 81001; 82803; 82947; 83605; 83880; 84484; 85007; 85025; 87040; 93005; 96365; 96367; 99291; G0378; J0456; J2543; J7050; U0003; G0379; J1815